=== PATIENT | female | born 1945 | race Two or more races ===

== ENCOUNTER 2019-09-03 09:41 | Inpatient (IN) | payer MEDICARE ==
[~2019-09-03] VITALS: Ht 157.5 cm; Wt 72.1 kg
--- NOTE | 2019-09-03 09:45 | NUR ---
patient bibself sent by PMD c/o pressure like chest pain since 0300. worst at night lying down. On room air, breathing evenly and unlabored. connected to the monitor and pulse ox. kept comfortable, will continue to monitor accordingly.
--- NOTE | 2019-09-03 09:50 | NUR ---
PT IV LINE ESTABLISHED BLOOD DRAWN AND SENT TO LAB.
--- NOTE | 2019-09-03 10:09 | NUR ---
STAINED GLASS GLAZIER HELPER AT BEDSIDE FOR XRAY.
--- NOTE | 2019-09-03 10:15 | NUR ---
COVID SWAB AND RAPID INFLUENZA OBTAINED AND SENT TO LAB.
[2019-09-03 10:18] LABS: BASOPHILS # (AUTO) 0.1 /CMM (0.0-0.2); EOSINOPHILS % (AUTO) 0.9 % (0.0-6.0); HEMATOCRIT 41 % (33-45); HEMOGLOBIN 13.8 g/dL (11.5-14.8); LYMPHOCYTES # (AUTO) 1.9 /CMM (0.8-4.8); LYMPHOCYTES % (AUTO) 26.2 % (20.0-44.0); MEAN CORPUSCULAR HGB CONC 34 g/dl (31.0-36.0); MEAN CORPUSCULAR VOLUME 95 fL (82-100); MONOCYTES # (AUTO) 0.4 /CMM (0.1-1.30); MONOCYTES % (AUTO) 5.5 % (2.0-12.0); NEUTROPHILS # (AUTO) 4.8 /CMM (1.8-8.9); NEUTROPHILS % (AUTO) 66.4 % (43.0-81.0); PLATELET COUNT (AUTO) 195 /CMM (150-450); RED BLOOD CELL COUNT(AUTO) 4.33 MIL/uL (4.0-5.2); WHITE BLOOD COUNT (AUTO) 7.2 K/uL (4.3-11.0)
[2019-09-03 10:20] LABS: CALCIUM, SERUM 10.1 mg/dL (8.5-10.1); CARBON DIOXIDE 28 mmol/L (21-32); CHLORIDE 101 mmol/L (98-107); CREATININE 1.2 mg/dL (0.6-1.3); GLUCOSE 240 mg/dL (74-106); POTASSIUM 4.2 mmol/L (3.5-5.1); SODIUM SERUM 136 mmol/L (136-145); UREA NITROGEN, BLOOD 24 mg/dL (7-18)
[2019-09-03 10:33] LABS: ALANINE AMINOTRANSFERASE 125 U/L (12-78); ALBUMIN 3.7 g/dL (3.4-5.0); ALKALINE PHOSPHATASE 69 U/L (46-116); ASPARTATE AMINOTRANSFERASE 118 U/L (15-37); B-TYPE NATRIURETIC PEPTIDE 1720 PG/ML (0-125); BILIRUBIN,TOTAL 0.7 mg/dL (0.2-1.0); TOTAL PROTEIN, SERUM 7.8 g/dL (6.4-8.2)
[2019-09-03 10:50] LABS: APPEARANCE,URINE Clear (CLEAR); BILIRUBIN,URINE Negative (NEGATIVE); BLOOD, URINE Trace-intact Ery/uL (NEGATIVE); COLOR,URINE Yellow (YELLOW); KETONES,URINE Negative (NEGATIVE); LEUKOCYTE ESTERASE ,URINE Trace (NEGATIVE); NITRITE, URINE Negative (NEGATIVE); PROTEIN,URINE 100 mg/dl (NEGATIVE); UGLUCOSE Negative (NEGATIVE); UROBILINOGEN,URINE 0.2 EU/dL (0.2)
[2019-09-03 10:52] LABS: BACTERIA,URINE Few /HPF (None Seen); SQUAMOUS EPITHELIAL CELL,UR Few /HPF (None Seen)
--- NOTE | 2019-09-03 10:53 | NUR ---
CALLED FOR BED AND SUBMITTED MOVE SHEET TO ADMITTING.
[2019-09-03 11:21] LABS: CREATINE KINASE, TOTAL 90 U/L (26-192); FERRITIN 43 ng/mL (8-388)
[2019-09-03 11:24] LABS: C-REACTIVE PROTEIN < 0.2 mg/dL (0.0-0.9)
--- NOTE | 2019-09-03 11:37 | NUR ---
DR DALY DE ANDA. AWAITING CALL BACK.
--- NOTE | 2019-09-03 11:44 | NUR ---
CALLED DR. KAUFFMAN [phone] WILL BE PAGED BY AISHA.
--- NOTE | 2019-09-03 11:51 | NUR ---
Dr. Killian accepted the patient for admission.
[2019-09-03] MEDS ORDERED: FUROSEMIDE 40 MG/4 ML VIAL IV ONE (12:00)
[2019-09-03] MEDS ORDERED: ASPIRIN 325 MG TABLET PO ONE (12:00)
[2019-09-03] MEDS ORDERED: NITROGLYCERIN PACKET 1 GM PACKET TD ONE (12:00)
[2019-09-03] MEDS ORDERED: ASPIRIN 325 MG TABLET ONE (12:12)
[2019-09-03] MEDS ORDERED: FUROSEMIDE 40 MG/4 ML VIAL ONE (12:12)
[2019-09-03] MEDS ORDERED: NITROGLYCERIN PACKET 1 GM PACKET ONE (12:12)
[2019-09-03 12:32] LABS: D-DIMER 0.31 mg/L(FEU (0.17-0.50)
--- NOTE | 2019-09-03 12:47 | NUR ---
report given to Chelsea PELAEZ for carlota.
--- NOTE | 2019-09-03 13:16 | NUR ---
wheeled patient via gurney accompanied by RN and emt in no distress. RN at bedside to assume care.
[2019-09-03 13:30] VITALS: BP 147/90
--- NOTE | 2019-09-03 14:00 | NUR ---
Tele/RN - Admission Received patient from ER via gurney, awake, A/O x 4, denies chest pain, stable on room air, tele shows A.Fib. Skin is intact. Patient is ambulatory and uses single point cane. All belongings accounted, refused valuables to be placed in the safe. Patient was oriented to room an use of call light. Fall, droplet and contact precautions initiated for r/o Covid-19. Influenza A&B results were negative. Awaiting for admission orders from Dr. Killian.
[2019-09-03 14:24] LABS: BILIRUBIN,DIRECT 0.1 mg/dL (0.0-0.2)
[2019-09-03] MEDS ORDERED: LOSARTAN POTASSIUM 50 MG TABLET PO SCH (15:00)
[2019-09-03] MEDS: PANTOPRAZOLE 40 MG TABLET.DR PO SCH (15:00)
[2019-09-03 15:48] VITALS: BP 147/90
[2019-09-03] MEDS: METFORMIN 500 MG TABLET PO SCH (16:23)
[2019-09-03] MEDS: APIXABAN 5 MG TABLET PO SCH (16:24)
[2019-09-03 16:27] LABS: MAGNESIUM 1.8 mg/dL (1.8-2.4)
[2019-09-03 16:45] LABS: THYROID STIMULATING HORMONE 2.071 uIU/mL (0.358-3.74)
--- NOTE | 2019-09-03 19:03 | NUR ---
Tele/RN - End of shift summary No significant change in condition seen, stable on room air, remain afebrile, denies chest pain, states feeling better. Plan of care discussed with patient and in agreement. Will endorse to night RN accordingly.
[2019-09-03 20:00] VITALS: BP 143/82
[2019-09-03] MEDS: METOPROLOL TARTRATE 50 MG TABLET PO SCH (21:14)
[2019-09-03] MEDS: TRAZODONE 50 MG TABLET PO SCH (21:14)
[2019-09-03] MEDS: ATORVASTATIN 10 MG TABLET PO SCH (21:15)
[2019-09-03] MEDS: FUROSEMIDE 40 MG/4 ML VIAL IV SCH (21:17)
[2019-09-04] VITALS: BP 134/84
[2019-09-04 04:00] VITALS: BP 127/85
[2019-09-04 07:08] LABS: CALCIUM, SERUM 9.6 mg/dL (8.5-10.1); POTASSIUM 2.9 mmol/L (3.5-5.1)
--- NOTE | 2019-09-04 07:20 | NUR ---
CRITICAL RESULT BLOOD CX DR. KAUFFMAN CONTACTED AND INFORMED OF GRAM POSITIVE COCCI IN CLUSTERS IN THE BLOOD. REVIEWED PATIENT CONDITION OF NO FEVER AND LAST WBC COUNT. NO NEW ORDERS AT THIS TIME. WILL CONT TO MONITOR.
[2019-09-04] MEDS: PANTOPRAZOLE 40 MG TABLET.DR PO SCH (07:41)
--- NOTE | 2019-09-04 07:53 | NUR ---
ARTISTIC DIRECTOR OPENING NOTES RECEIVED PATIENT IN BED, AWAKE, A/O X3. PATIENT IS ON ROOM AIR; BREATHING IS EVEN AND UNLABORED. NO SOB PRESENT AT THIS TIME. PATIENT DENIES PAIN. EXTERNAL STOCK CONTROL CLERK ATTACHED WITH A READING OF SR 85. RAC SL GAUGE # 18 IV ACCESS PRESENT AND INTACT; FLUSHING WELL. SAFETY PRECAUTIONS IN PLACE; BED IN LOW POSITION AND LOCKED, RAILS UP X2, CALL LIGHT WITHIN REACH. WILL CONTINUE TO MONITOR PATIENT.
[2019-09-04 08:00] VITALS: BP 164/70
[2019-09-04] MEDS: TENOFOVIR DISOPROXIL FUMARATE 300 MG TABLET PO SCH (09:13)
[2019-09-04] MEDS: METFORMIN 500 MG TABLET PO SCH ×2 (09:13→16:40)
[2019-09-04] MEDS: ISOSORBIDE MONONITRATE (30MG) 30 MG TAB.SR.24H PO SCH (09:14)
[2019-09-04] MEDS: APIXABAN 5 MG TABLET PO SCH ×2 (09:15→16:41)
[2019-09-04] MEDS: METOPROLOL TARTRATE 50 MG TABLET PO SCH ×2 (09:16→21:15)
[2019-09-04] MEDS: LOSARTAN POTASSIUM 50 MG TABLET PO SCH (09:16)
[2019-09-04] MEDS: FUROSEMIDE 40 MG/4 ML VIAL IV SCH ×2 (09:17→21:15)
[2019-09-04] MEDS: POTASSIUM CHLORIDE 20 MEQ TAB.PRT.SR PO SCH ×3 (10:09→12:16)
[2019-09-04 12:00] VITALS: BP 138/75
[2019-09-04] MEDS ORDERED: POTASSIUM CHLORIDE 20 MEQ TAB.PRT.SR PO SCH ×2 (12:00→14:00)
--- NOTE | 2019-09-04 13:54 | NUR ---
NEWS REEL CAMERAMAN NOTES DOUBLE ORDER. EXTRA 40 MEQ ALREADY ADMINISTERED IN ADDITION TO 60 GIVEN BEFORE.
[2019-09-04 16:00] VITALS: BP 115/71
--- NOTE | 2019-09-04 19:00 | NUR ---
SALES STORE CHECKER NOTES RECEIVED A CALL FROM LAB. PATIENT IS COVID-19 NEGATIVE. INFORMED MD. WILL ENDORSE TO BENEFITS ASSISTANT NURSE.
--- NOTE | 2019-09-04 19:01 | NUR ---
ADULT EDUCATION TEACHER CLOSING NOTES PATIENT STILL IN BED, AWAKE, A/O X3. PATIENT ON ROOM AIR; BREATHING IS EVEN AND UNLABORED. NO SOB PRESENT AT THIS TIME. NO COMPLAINS OF PAIN THROUGHOUT THE DAY. EXTERNAL CUSTODIAN ATHLETIC EQUIPMENT ATTACHED WITH A READING OF SR 80S. RAC SL GAUGE # 18 IV ACCESS PRESENT AND INTACT; FLUSHING WELL. ALL NEEDS ATTENDED TO DURING THE DAY SHIFT. SAFETY PRECAUTIONS REMAIN IN PLACE; BED IN LOW POSITION AND LOCKED, RAILS UP X2, CALL LIGHT WITHIN REACH. WILL ENDORSE TO STAFF SERVICES MANAGER NURSE.
--- NOTE | 2019-09-04 19:10 | NUR ---
TELE/RN OPENING NOTES: RECEIVED PATIENT IN BED, AWAKE, A/O X3-4. CURRENTLY PLACED ON ROOM AIR; BREATHING IS EVEN AND UNLABORED. NO SOB PRESENT AT THIS TIME. SATURATING WELL AT 95%. NO COMPLAINS OF PAIN AT THIS TIME. EXTERNAL TACK CUTTER ATTACHED WITH A READING OF AFIB WITH HR ON THE 90S TO 100S. IV PLACED ON THE RAC #18G SL, INTACT; FLUSHING WELL. ALL NEEDS ATTENDED FOR NOW. AMBULATORY AND BRP. SKIN IS INTACT. SAFETY PRECAUTIONS REMAIN IN PLACE; BED IN LOW POSITION AND LOCKED, RAILS UP X2, CALL LIGHT WITHIN REACH. WILL CONTINUE MONITORING.
--- NOTE | 2019-09-04 19:54 | NUR ---
TELE/RN CLOSING NOTES: RECIEVED PATIENT IN BED, AWAKE, A/O X3-4. CURRENTLY PLACED ON ROOM AIR; BREATHING IS EVEN AND UNLABORED. NO SOB PRESENT AT THIS TIME. SATURATING WELL AT 95%. NO COMPLAINS OF PAIN AT THIS TIME. EXTERNAL BEE ROBBER ATTACHED WITH A READING OF AFIB WITH HR ON THE 90S TO 100S. IV PLACED ON THE RAC #18G SL, INTACT; FLUSHING WELL. ALL NEEDS ATTENDED FOR NOW. AMBULATORY AND BRP. SKIN IS INTACT. SAFETY PRECAUTIONS REMAIN IN PLACE; BED IN LOW POSITION AND LOCKED, RAILS UP X2, CALL LIGHT WITHIN REACH. WILL CONTINUE MONITORING. Addendum: 09/04/19 at 2008 by CHET WILKES RN OPENING NOTES
[2019-09-04 20:00] VITALS: BP 140/81
[2019-09-04] MEDS: TRAZODONE 50 MG TABLET PO SCH (21:16)
[2019-09-04] MEDS: ATORVASTATIN 10 MG TABLET PO SCH (21:16)
[2019-09-05] VITALS (7 sets, daily range): BP systolic 116–152; BP diastolic 61–66
--- NOTE | 2019-09-05 06:11 | NUR ---
TELE/RN CLOSING NOTES: PATIENT IN BED, SLEEPING, REMAINS A/O X4. ON ROOM AIR; BREATHING IS EVEN AND UNLABORED. NO SOB PRESENT AT THIS TIME. SATURATING WELL AT 95%. NO COMPLAINS OF PAIN AT THIS TIME. EXTERNAL ASTRONAUT MISSION SPECIALIST ATTACHED WITH A READING OF AFIB WITH HR ON THE 90S. IV ON THE RAC #18G SL, INTACT; FLUSHING WELL. ALL NEEDS ATTENDED FOR NOW. ALL DUE MEDS GIVEN ORDERED. SAFETY PRECAUTIONS REMAIN IN PLACE; BED IN LOW POSITION AND LOCKED, RAILS UP X2, CALL LIGHT WITHIN REACH. WILL ENDORSE TO DAY SHIFT FOR VEDA.
[2019-09-05 07:02] LABS: CALCIUM, SERUM 9.8 mg/dL (8.5-10.1); POTASSIUM 3.6 mmol/L (3.5-5.1)
[2019-09-05] MEDS: FUROSEMIDE 40 MG/4 ML VIAL IV SCH (08:10)
[2019-09-05] MEDS: PANTOPRAZOLE 40 MG TABLET.DR PO SCH (08:10)
[2019-09-05] MEDS: TENOFOVIR DISOPROXIL FUMARATE 300 MG TABLET PO SCH (08:10)
[2019-09-05] MEDS: METFORMIN 500 MG TABLET PO SCH (08:11)
[2019-09-05] MEDS: APIXABAN 5 MG TABLET PO SCH (08:13)
--- NOTE | 2019-09-05 08:14 | NUR ---
TRICK RODEO RIDER NOTES RECEIVED PATIENT IN BED A/OX 4. NO SOB OR DISCOMFORT NOTED AT THIS TIME. ABLE TO AMBULATE BY HERSELF. BED AT THE LOWEST POSITION LOCKED. CALL LIGHT WITHIN REACH WILL CONTINUE TO MONITOR THE PATIENT.
[2019-09-05] MEDS: METOPROLOL TARTRATE 50 MG TABLET PO SCH (08:21)
[2019-09-05] MEDS: LOSARTAN POTASSIUM 50 MG TABLET PO SCH (08:21)
[2019-09-05] MEDS: ISOSORBIDE MONONITRATE (30MG) 30 MG TAB.SR.24H PO SCH (08:21)
[2019-09-05] MEDS ORDERED: IOHEXOL-350 100 ML VIAL IV ONE (13:03)
[2019-09-05] MEDS ORDERED: NITROGLYCERIN 0.4 MG/TAB BOTTLE ONE (13:14)
[2019-09-05] MEDS ORDERED: METOPROLOL TARTRATE INJ 5 MG/5 ML AMPUL ONE ×2 (13:14→13:58)
--- NOTE | 2019-09-05 13:20 | NUR ---
PAPER BALER NOTE Patient was taken to do CT angio with contrast by 2 radiologist via wheelchair in stable condition.
[2019-09-05] MEDS ORDERED: NITROGLYCERIN 0.4 MG/TAB BOTTLE SL ONE (13:30)
[2019-09-05] MEDS: METOPROLOL TARTRATE INJ 5 MG/5 ML AMPUL IVP PRN ×5 (13:33→13:53)
--- NOTE | 2019-09-05 13:38 | NUR ---
ASSISTANT OFFICE MANAGER NOTES PATIENT REPORT GIVEN TO TYE FOR VEDA.
[2019-09-05] MEDS ORDERED: METO25TA6 PO (13:40)
[2019-09-05] MEDS ORDERED: ISOS30TA6 PO (13:40)
[2019-09-05] MEDS ORDERED: METF-440 PO (13:40)
--- NOTE | 2019-09-05 14:20 | NUR ---
FINAL TESTER NOTE Patient came back from the procedure in stable condition. Received order to transfer to 3 room 320. Called and gave report to Armando.
--- NOTE | 2019-09-05 14:43 | NUR ---
BENEFITS CONSULTANT NOTE Patient was transferred to room 320-1 via wheelchair with belongings. Tolerated well. Report handout given to Armando PELAEZ.
--- NOTE | 2019-09-05 14:45 | NUR ---
RN NOTES RECEIVED PATIENT FROM DANIEL[facility] VIA WHEELCHAIR ACCOMPANIED BY BENIGNO GAMBLE. A/O X4. ABLE TO MAKE NEEDS KNOWN. PATIENT ORIENTED TO ROOM, STAFF AND UNIT. NO SIGNS OF DISTRESS NOTED AT THIS TIME. IV ACCESS ON RAC#18, SL. PATENT AND INTACT. S/P CT ANGIO. SAFETY MEASURES IN PLACE, WILL CONTINUE TO MONITOR.
--- NOTE | 2019-09-05 16:30 | NUR ---
RN DISCHARGED NOTES PATIENT DISCHARGED IN STABLE CONDITION. A/O X4. ABLE TO MAKE NEEDS KNOWN. V/S TAKEN, STABLE AND RECORDED. PATIENT'S IV REMOVED AND APPLIED PRESSURE DRESSINGS. SKIN IS INTACT. NAME ARM BAND REMOVED. ALL BELONGINGS CHECKED AND SIGNED. HEALTH TEACHINGS/DISCHARGED INSTRUCTIONS GIVEN TO PATIENT AND VERBALIZED UNDERSTANDING. PATIENT LEFT UNIT VIA WHEELCHAIR, ASSISTED TO THE LOBBY WITH NO ACUTE SIGNS OF DISTRESS NOTED. PICKED UP BY SON. CHARGE NURSE AWARE OF DISCHARGED.
[2019-09-06] MEDS ORDERED: FUROSEMIDE 40 MG TABLET PO SCH (09:00)
== END 2019-09-05 17:30 | disposition home or self-care (01) | DRG 292 ==
LOC: ER 09:41 → TELE 12:34 → TELE1 13:17 → TELE 09-05 14:35 → MED 09-05 15:34
PROVIDERS: ADMIT Internal Medicine; ATTEND Internal Medicine
DX: I11.0 Hypertensive heart disease with heart failure (principal); I48.21 Permanent atrial fibrillation; E87.2 Acidosis; B18.1 Chronic viral hepatitis B without delta-agent; I31.3 Pericardial effusion (noninflammatory); I50.23 Acute on chronic systolic (congestive) heart failure; Z79.01 Long term (current) use of anticoagulants; E11.9 Type 2 diabetes mellitus without complications; E87.6 Hypokalemia; R07.9 Chest pain, unspecified; R74.0 Nonspecific elevation of levels of transaminase and lactic acid dehydrogenase [LDH]; Z79.84 Long term (current) use of oral hypoglycemic drugs; E66.9 Obesity, unspecified; Z68.29 Body mass index [BMI] 29.0-29.9, adult; Z80.0 Family history of malignant neoplasm of digestive organs
CPT/HCPCS: 36415; 71045-TC; 75574; 80048-TC; 80053-TC; 81000-TC; 82248-TC; 82550-TC; 82728-TC; 83605-TC; 83615-TC; 83735-TC; 83880; 84439-TC; 84443-TC; 84484-TC; 85025-TC; 85378-TC; 85730-TC; 86140-TC; 87040-TC; 87081-TC; 93307-TC; G0378; J1940; J3490; Q9967

== ENCOUNTER 2020-10-03 14:55 | Inpatient (IN) | payer MEDICARE ==
[2020-10-03] VITALS (18 sets, daily range): BP systolic 75–154; BP diastolic 43–118
[~2020-10-03] VITALS: Ht 167.6 cm; Wt 64.9 kg
[~2020-10-03 14:55] MED LIST: ISOS30TA86 PO; METF-440 PO; METO25TA6 PO
--- NOTE | 2020-10-03 15:17 | NUR ---
bibdaughter, c/o chest tightness since last night, 7/10 pain scale, radiating to right upper back. On room air, breathing evenly and unlabored. connected to the monitor and pulse ox. kept comfortable, will continue to monitor accordingly.
--- NOTE | 2020-10-03 15:18 | NUR ---
IV access started and blood drawned and sent to lab
[2020-10-03 15:19] LABS: BASOPHILS # (AUTO) 0.1 /CMM (0.0-0.2); BASOPHILS % (AUTO) 1.1 % (0.0-2.0); HEMATOCRIT 35 % (33-45); HEMOGLOBIN 11.3 g/dL (11.5-14.8); LYMPHOCYTES # (AUTO) 1.6 /CMM (0.8-4.8); LYMPHOCYTES % (AUTO) 25.6 % (20.0-44.0); MEAN CORPUSCULAR HGB CONC 33 g/dl (31.0-36.0); MEAN CORPUSCULAR VOLUME 100 fL (82-100); MONOCYTES # (AUTO) 0.3 /CMM (0.1-1.30); MONOCYTES % (AUTO) 4.2 % (2.0-12.0); NEUTROPHILS # (AUTO) 3.9 /CMM (1.8-8.9); NEUTROPHILS % (AUTO) 64.1 % (43.0-81.0); PLATELET COUNT (AUTO) 180 /CMM (150-450); RED BLOOD CELL COUNT(AUTO) 3.47 MIL/uL (4.0-5.2); WHITE BLOOD COUNT (AUTO) 6.1 K/uL (4.3-11.0)
[2020-10-03 15:30] LABS: CALCIUM, SERUM 10.4 mg/dL (8.5-10.1); CARBON DIOXIDE 12 mmol/L (21-32); CHLORIDE 105 mmol/L (98-107); CREATININE 5.6 mg/dL (0.6-1.3); GLUCOSE 125 mg/dL (74-106); POTASSIUM 6.1 mmol/L (3.5-5.1); SODIUM SERUM 135 mmol/L (136-145)
[2020-10-03 15:33] LABS: UREA NITROGEN, BLOOD 112 mg/dL (7-18)
--- NOTE | 2020-10-03 16:01 | NUR ---
covid swab collected and sent to lab
[2020-10-03] MEDS ORDERED: TENO300T5 PO (16:18)
[2020-10-03] MEDS ORDERED: ATOR10TA PO (16:18)
[2020-10-03] MEDS ORDERED: APIX5TAB PO (16:18)
[2020-10-03] MEDS ORDERED: ERTU5TAB PO (16:18)
[2020-10-03] MEDS ORDERED: SPIR25TA6 PO (16:18)
[2020-10-03] MEDS ORDERED: BUME1TAB8 PO (16:18)
[2020-10-03] MEDS ORDERED: METO200T49 PO (16:18)
[2020-10-03] MEDS ORDERED: SACU1TAB7 PO (16:18)
[2020-10-03] MEDS ORDERED: IV NS 0.9% 500 ML BAG IV ONE ×2 (17:00→18:00)
--- NOTE | 2020-10-03 17:20 | NUR ---
DR. KAUFFMAN SPEAKING WITH DR. OWEN.
--- NOTE | 2020-10-03 17:45 | NUR ---
received a call from Rakel LOVE and clinical report given aNd faxed to [phone], Phone number [phone]
--- NOTE | 2020-10-03 18:47 | NUR ---
Report given to Julien PELAEZ for carlota
--- NOTE | 2020-10-03 18:58 | NUR ---
wheeled patient via gurney accompanied by RN and emt in no distress. RN assigned to patient at bedside to assume care.
--- NOTE | 2020-10-03 18:59 | NUR ---
RN NOTES PATIENT ARRIVED TO UNIT AT ROOM 326-2 VIA GURNEY, ACCOMPANIED BY 2 ER NURSES. PATIENT AMBULATORY AND ABLE TO AMBULATE TO BED W/ ASSISTANCE.
[2020-10-03] MEDS ORDERED: IV NS 0.9% 1,000 ML IV PRN ×2 (19:00→21:00)
--- NOTE | 2020-10-03 20:20 | NUR ---
RT NOTE RESPONDED TO CODE AT 3 WEST. PERFORMED CPR AND ADMINISTERED 100% O2 VIA AMBU BAG. PT INTUBATED BY MD OWEN AND SECURED ET TUBE VIA ET TUBE GROVE. ET TUBE 7.5 @ 23 CM. TRANSFERRED PT TO ICU AND PLACED PT ON VENT WITH CURRENT SETTINGS OF AC 16, 500, 100%, +5. WILL DRAW ABG IN 1 HOUR POST INTUBATION. WILL AWAIT FURTHER ORDERS. VENT PLUGGED TO RED OUTLET. ALARMS ON AND AUDIBLE.
--- NOTE | 2020-10-03 20:35 | NUR ---
ICU/SCOWMAN RECEIVED REPORT FROM [facility] NURSE APONTE. THIS WAS S/P RAPID THEN TURNED CODE BLUE.
[2020-10-03] MEDS ORDERED: PROPOFOL 100 ML ONE (20:51)
--- NOTE | 2020-10-03 20:55 | NUR ---
ICU/TRACTOR TRAILER DRIVER SPOKE TO DR KAUFFMAN ABOUT ICU ADMISSION. OBTAINED ORDERS FOR ICU TRANSFER. CHARGE NURSE MADE AWARE. PLACED ORDERS BY DR KAUFFMAN. ALSO ASKED DR KAUFFMAN ABOUT ELEVATED BUN/CREAT/ K LEVEL SAID DR SANTOS IS TO ADDRESS THAT. ALSO GAVE ORDER KAYEXALATE.
[2020-10-03 20:56] LABS: BASOPHILS # (AUTO) 0.1 /CMM (0.0-0.2); BASOPHILS % (AUTO) 0.6 % (0.0-2.0); EOSINOPHILS % (AUTO) 2.2 % (0.0-6.0); HEMATOCRIT 32 % (33-45); HEMOGLOBIN 10.5 g/dL (11.5-14.8); LYMPHOCYTES # (AUTO) 4.7 /CMM (0.8-4.8); LYMPHOCYTES % (AUTO) 55.6 % (20.0-44.0); MEAN CORPUSCULAR HGB CONC 33 g/dl (31.0-36.0); MEAN CORPUSCULAR VOLUME 101 fL (82-100); MONOCYTES # (AUTO) 0.3 /CMM (0.1-1.30); MONOCYTES % (AUTO) 3.8 % (2.0-12.0); NEUTROPHILS # (AUTO) 3.2 /CMM (1.8-8.9); NEUTROPHILS % (AUTO) 37.8 % (43.0-81.0); PLATELET COUNT (AUTO) 167 /CMM (150-450); RED BLOOD CELL COUNT(AUTO) 3.18 MIL/uL (4.0-5.2); WHITE BLOOD COUNT (AUTO) 8.4 K/uL (4.3-11.0)
[2020-10-03] MEDS ORDERED: PROPOFOL 100 ML IV PRN (21:00)
[2020-10-03 21:14] LABS: CALCIUM, SERUM 11.2 mg/dL (8.5-10.1); CARBON DIOXIDE 15 mmol/L (21-32); CHLORIDE 110 mmol/L (98-107); CREATININE 5.5 mg/dL (0.6-1.3); GLUCOSE 268 mg/dL (74-106); POTASSIUM 5.4 mmol/L (3.5-5.1); SODIUM SERUM 142 mmol/L (136-145)
[2020-10-03 21:15] LABS: UREA NITROGEN, BLOOD 111 mg/dL (7-18)
[2020-10-03 21:19] LABS: BAND % (MANUAL) 1 % (0.0-5.0); EOSINOPHILS % (MANUAL) 3 % (0-4); LYMPHOCYTES % (MANUAL) 45 % (16-48); MONOCYTES % (MANUAL) 2 % (0-11.0); NEUTROPHILS % (MANUAL) 48 (42-76); REACTIVE LYMPHOCYTES 1 % (0-0)
--- NOTE | 2020-10-03 21:20 | NUR ---
ICU/JAVASCRIPT APPLICATION DEVELOPER ORDERS GIVEN FOR KAYEXALATE, ALVAREZ, N/G TUBE WAS GIVEN AND CARRIED OUT. WAITING FOR HOUSE SUP TO BRING MED. ICU DOESN'T HAVE THIS MED. ON THE FLOOR.
[2020-10-03 21:29] LABS: NT-PRO BNP 1387 pg/mL (0-125)
[2020-10-03] MEDS ORDERED: SODIUM POLYSTYRENE SULFONATE 15 G/60 ML BOTTLE PO ONE (21:30)
[2020-10-03] MEDS ORDERED: SODIUM POLYSTYRENE SULFONATE 15 G/60 ML BOTTLE ONE (21:34)
--- NOTE | 2020-10-03 21:45 | NUR ---
ICU/PLANT PRODUCTION MANAGER DR KAUFFMAN CALLED ABOUT THE ABG RESULTS, VENT SETTINGS IS AC 16, 500, 100, 5. PH 7.215, HCO3 11.4. CHARGE NURSE CALLED, AWAITING FOR CALL BACK.
[2020-10-03 21:56] LABS: ABG OXYGEN SATURATION 97.3 % (92.0-98.5); ABG PCO2 28.7 mmHg (35.0-45.0); ABG PH 7.215 (7.350-7.450); ABG PO2 101.9 mmHg (75.0-100.0); AaDO2 582.4 mmHg; COHb 0.3 % (0.5-1.5); MetHb 0.1 % (0.0-1.5); O2Hb 96.9 % (94.0-97.0); SITE, ABG Right Radial
--- NOTE | 2020-10-03 21:56 | NUR ---
ICU/[place] PT WAS GIVEN KAYEXALATE. ABG WAS DONE CHARGE NURSE GIVEN RESULTS. DR KAUFFMAN CALLED ABOUT THE RESULTS. ALSO INCREASED THE IVF TO 150ML [id number]. CHARGE NURSE INCREASED DIPRIVAN PER ICU PROTOCAL FOR PT IS BE SEDATED WHILE INTUBATED.
[2020-10-03] MEDS ORDERED: EPINEPHRINE (1:10,000) SYRINGE 1 MG/10 ML DISP.SYRIN ONE (22:00)
[2020-10-03] MEDS ORDERED: CALCIUM CHLORIDE 1,000 MG/10 ML DISP.SYRIN ONE (22:00)
[2020-10-03] MEDS ORDERED: SODIUM BICARBONATE SYR 50 MEQ/50 ML DISP.SYRIN ONE ×3 (22:00→22:37)
[2020-10-03] MEDS ORDERED: AMIODARONE 150 MG/3 ML VIAL IV ONE (22:00)
[2020-10-03] MEDS ORDERED: DEXTROSE 50%-WATER 50 ML DISP.SYRIN ONE (22:00)
[2020-10-03] MEDS ORDERED: IV NS 0.9% 1,000 ML IV ONE (22:00)
--- NOTE | 2020-10-03 22:00 | NUR ---
ICU/SUPERVISOR CONTACT LENS THE ETT TUBE IS 1CM ABOVE PONCHO, RT NOTIFED ABOUT THIS AND PULLED BACK ETT TUBE 2CM. Addendum: 10/04/20 at 0914 by ARYAN ARGUETA LVN THIS WAS DONE AT MIDNIGHT.
--- NOTE | 2020-10-03 22:11 | NUR ---
ICU/GEOGRAPHIC INFORMATION SYSTEMS ANALYST CALL WAS PLACED TO DR CHON Levin ABOUT THE RENAL CONSULT AND ALSO THE ABG RESULTS. WAITING FOR CALL BACK.
--- NOTE | 2020-10-03 22:23 | NUR ---
MS/TELE/RN FOUND WRITTEN INITIAL ADMISSION ORDERS TO TELE BY DR. KAUFFMAN. ADMISSIONS ORDERS WERE ENTERED BY MARYBEL EJFFRIES RN. (LATE ENTRY).
--- NOTE | 2020-10-03 22:26 | NUR ---
MS/TELE/RN LATE ENTRY. AT 1930, DURING MY INITIAL SHIFT ROUNDING, FOUND PATIENT LYING IN BED AWAKE, ALERT, ORIENTED, VERBAL, SON AT BEDSIDE, PATIENT WAS COMFORTABLE, NO C/O PAIN, NO SIGNS OF DISTRESS NOTED, CALL LIGHT WAS IN REACH. AT AROUND 1949, I CAME BACK TO THE ROOM TO DO MY ADMISSION AND FOUND PATIENT SITTING AT THE EDGE OF THE BED LOOKING PALE. PER SON, HE JUST WALKED THE PATIENT TO THE BATHROOM. MEDICAL PARASITOLOGISTNESHA CAME IN, ASSISTED PATIENT BACK TO LYING POSITION IN BED WITH THE HELP OF THE MEDICAL PARASITOLOGIST NESHA AND THE SON. PATIENT WAS NOTED TO BE NON RESPONSIVE AT THIS TIME, NO BREATHING NOTED. CYNTHIA PRINGLE WAS THEN CALLED, AT 1952, CYNTHIA PRINGLE TEAM CAME RIGHT AWAY, VITAL SIGNS TAKEN, BP 87/31, HR 0, RR 0, O2 SAT 0, ACCU CHECK BLOOD SUGAR 121, HEART MONITOR WAS CONNECTED TO THE PATIENT. CHEST COMPRESSIONS WAS INITIATED BY THE CYNTHIA PRINGLE TEAM, INTUBATION WAS DONE. PATIENT WAS REVIVED. CODE BLUE ENDED AT 1999. PATIENT WAS THEN TRANSFERRED TO ICU PER ACLS PROTOCOL AT 2009 TO ROOM 253. REPORT WAS GIVEN TO SOMMER BAEZA. PLACED A CALL TO DR. KAUFFMAN AT [phone], LEFT MESSAGE. SOMMER BAEZA, INFORMED.
[2020-10-03] MEDS ORDERED: Sodium Bicarbonate 100 MEQ in IV 1/2NS 1000 ML 1,000 ML IV PRN (22:30)
[2020-10-03] MEDS ORDERED: SODIUM BICARBONATE SYR 50 MEQ/50 ML DISP.SYRIN IV ONE (22:30)
--- NOTE | 2020-10-03 22:32 | NUR ---
ICU/BUNDLE CLERK CHARGE NURSE SPOKE TO DR KAUFFMAN ABOUT ABG RESULTS ALSO MADE HIM ARE THAT NO DR GIVENS CALLED BACK. NO ORDERS RECIEVED ABOUT THE ABG RESULTS SAID TO CALL RENAL GROUP. CALLED RENAL GROUP ABOUT THIS PT AND ABG RESULTS. DR SMALL CALLED BACK SPOKE TO CHARGE NURSE WHO THEN RECIEVED ORDERS FOR CARRYING OUT THE ORDERS.
--- NOTE | 2020-10-03 22:56 | NUR ---
MS/ELDON/ELECTRIC TRAIN DRIVER INFORMATIONS OBTAINED FROM E.R. NOTES THE PATIENT IS ALREADY IN ICU AND NO FAMILY MEMBER IS AVAILABLE AT THIS TIME. ADMISSION IS A LATE ENTRY. Addendum: 10/03/20 at 2317 by FAY TIJERINA RN ADMISSION INFORMATIONS WAS BASED ON MY INITIAL SHIFT ROUNDING ASSESSMENT OF THE PATIENT.
--- NOTE | 2020-10-03 23:00 | NUR ---
ICU/ELECTROLOG OPERATOR ASKED DR KAUFFMAN FOR EPI DRIP FOR LOW HEART RATE, ASKED TO CALL DR SCHMID COMPRESSION MOLDING MACHINE SETTER. WAITING FOR DR RICARDO TO CALL BACK.
--- NOTE | 2020-10-03 23:02 | NUR ---
ICU/SAMPLE STITCHER DR KAUFFMAN CALLED ABOUT THE LOW HEART RATE 30'S TO 40'S. SAID THAT HE WASN'T GOING TO TREAT THIS. ALSO NOTIFIED HIM THAT MAYBE PT SHOULD HAVE A DIFFERENT SEDATION, SUCH VERSED DUE TO THE HEP B. DR KAUFFMAN SAID NO. TOLD HIM THAT PT IS AWAKING UP AT 50MCG. DR KAUFFMAN REFUSED TO CHANGE ANYTHING OR GIVE ORDER.
--- NOTE | 2020-10-03 23:02 | NUR ---
ICU/JOINERY PATTERNMAKER WILL CONTINUE TO MONITOR THIS PT, CLOSELY. PT IS RESPONDING TO THE CARE GIVEN BY NURSES.
[2020-10-03] MEDS ORDERED: NOREPINEPHRINE 8MG/250ML RTU 250 ML IV ONE ×2 (23:13→23:54)
--- NOTE | 2020-10-03 23:14 | NUR ---
ICU/LIEUTENANT SHIFT SUPERVISOR HOUSE SUP MADE AWARE OF THESE CONCERNS. @2209- LEVO WILL BE STARTED BY CHARGE NURSE FOR LOW BP OF 80'S. WILL CONTINUE TO CLOSELY MONITOR THIS PT.
[2020-10-03] MEDS: NOREPINEPHRINE 8 MG in IV NS 0.9% 242 ML IV PRN (23:16)
--- NOTE | 2020-10-03 23:30 | NUR ---
ICU/SHELL GRADER PLACED LAB ORDERS IN THE COMPUTER, CBC, MAG, PHOS, TROP AND STAT XRAY DUE TO LABS NOT BEING REPEATED AND ALSO ETT TUBE PLACEMENT. NEED BASELINE TO IF THE INTERVENTIONS HAVE HELPED SINCE DONE AND GIVEN.
[2020-10-03] MEDS ORDERED: ATROPINE SULFATE 1 MG/10 ML DISP.SYRIN ONE (23:37)
--- NOTE | 2020-10-03 23:37 | NUR ---
ICU/HISTORY FACULTY MEMBER STAT LABS ALONG WITH LABS DONE DUE TO RYTHEM CHANGE
[2020-10-03] MEDS ORDERED: NOREPINEPHRINE 4 MG/4 ML AMPUL IV ONE (23:55)
[2020-10-04] VITALS (33 sets, daily range): BP systolic 42–146; BP diastolic 20–93
[2020-10-04] MEDS ORDERED: ATROPINE SULFATE 1 MG/10 ML DISP.SYRIN IV ONE
--- NOTE | 2020-10-04 00:01 | NUR ---
RT ett pulled out 2 cm to 21cm
[2020-10-04] MEDS ORDERED: EPINEPHRINE (1:1000) 1 MG/ML AMPUL ONE ×6 (00:29→05:44)
--- NOTE | 2020-10-04 00:30 | NUR ---
ICU.POLICE COMMUNICATIONS DISPATCHER EPI DRIP ORDER WAS RECIEVED FROM ER . ORDER WAS CARRIED OUT. CHARGE NURSE AWARE SEE FLOWSHEET FOR TITRATION.
[2020-10-04] MEDS ORDERED: AMIODARONE 150 MG in IV D5W 100 ML IV STA (00:44)
[2020-10-04 00:48] LABS: BASOPHILS % (AUTO) 0.3 % (0.0-2.0); EOSINOPHILS % (AUTO) 0.3 % (0.0-6.0); HEMATOCRIT 29 % (33-45); HEMOGLOBIN 9.2 g/dL (11.5-14.8); LYMPHOCYTES # (AUTO) 4.4 /CMM (0.8-4.8); LYMPHOCYTES % (AUTO) 32.2 % (20.0-44.0); MEAN CORPUSCULAR HGB CONC 32 g/dl (31.0-36.0); MEAN CORPUSCULAR VOLUME 102 fL (82-100); MONOCYTES # (AUTO) 0.6 /CMM (0.1-1.30); MONOCYTES % (AUTO) 4.2 % (2.0-12.0); NEUTROPHILS # (AUTO) 8.7 /CMM (1.8-8.9); PLATELET COUNT (AUTO) 112 /CMM (150-450); RED BLOOD CELL COUNT(AUTO) 2.79 MIL/uL (4.0-5.2); WHITE BLOOD COUNT (AUTO) 13.7 K/uL (4.3-11.0)
[2020-10-04] MEDS: EPINEPHRINE (1:1000) 5 MG in IV NS 0.9% 245 ML IV PRN ×2 (00:48→05:49)
--- NOTE | 2020-10-04 01:04 | NUR ---
RT responded to code blue x2.
[2020-10-04 01:11] LABS: CALCIUM, SERUM 11.7 mg/dL (8.5-10.1); CARBON DIOXIDE 21 mmol/L (21-32); CHLORIDE 112 mmol/L (98-107); CREATININE 5.6 mg/dL (0.6-1.3); NT-PRO BNP 1294 pg/mL (0-125); SODIUM SERUM 150 mmol/L (136-145)
[2020-10-04 01:13] LABS: GLUCOSE 466 mg/dL (74-106); UREA NITROGEN, BLOOD 108 mg/dL (7-18)
[2020-10-04 01:15] LABS: CHLORIDE 112 mmol/L (98-107); SODIUM SERUM 150 mmol/L (136-145)
[2020-10-04 01:16] LABS: CARBON DIOXIDE 21 mmol/L (21-32); GLUCOSE 466 mg/dL (74-106)
[2020-10-04 01:17] LABS: CALCIUM, SERUM 11.7 mg/dL (8.5-10.1); CREATININE 5.6 mg/dL (0.6-1.3); PHOSPHORUS 7.9 mg/dL (2.5-4.9); UREA NITROGEN, BLOOD 108 mg/dL (7-18)
[2020-10-04 01:18] LABS: ALANINE AMINOTRANSFERASE 282 U/L (12-78); ALBUMIN 2.3 g/dL (3.4-5.0); ALKALINE PHOSPHATASE 42 U/L (46-116); ASPARTATE AMINOTRANSFERASE 226 U/L (15-37); BILIRUBIN,TOTAL 0.4 mg/dL (0.2-1.0); MAGNESIUM 2.3 mg/dL (1.8-2.4)
--- NOTE | 2020-10-04 01:20 | NUR ---
ICU/AWS SOFTWARE DEVELOPMENT ENGINEER 0000-ASKED ER MD TO COME ASSESS PT DUE TO CHANGE IN CONDITION, DR KAUFFMAN IS NOT RESPONDING TO CALLS. ALSO ASKED HOUSE SUP. TO CALL CARDIOLOGY, DUE TO THE RESPONDS TIME FROM DR KAUFFMAN. 0015-DR RICARDO CALLED GAVE UPDATE & DR GIVENS WELL 0008-SECOND CODE WAS CALLED, 0024-PT RETURNED TO ROSC@0024, LEVO MAXED, 1/2 NS+2AMP BICARB @100ML GOING SEDATION STOPPED DUE TO LOW HEART RATE. 0036-THIRD CODE BLUE CALLED, 0041-PT RETURNED TOP ROSC 0100-LABS WERE DRAWN ALONG WITH CHEST XRAY, ALL ARE STAT.
[2020-10-04] MEDS ORDERED: SODIUM BICARBONATE SYR 50 MEQ/50 ML DISP.SYRIN ONE ×2 (01:26→01:27)
[2020-10-04] MEDS ORDERED: Sodium Bicarbonate 100 MEQ in IV D5W 1,000 ML IV PRN (01:30)
--- NOTE | 2020-10-04 01:30 | NUR ---
ICU/FRONT END DEVELOPER JAVASCRIPT HTML CSS DR KAUFFMAN AT BEDSIDE, SAID TO START HYPOTHERMIA CODE BLUE. CHARGE NURSE MADE AWARE.
--- NOTE | 2020-10-04 01:37 | NUR ---
ICU/CITY PLANNER 0008-SECOND CODE BLUE STATED, PEA, CPR STARTED, SEDATION STOPPED. 0020-SPOKE TO DR KAUFFMAN ABOUT CODE BLUR 0024- PT RETURNS TO ROSC, ER SAID TO MAX OUT LEVO 0030-SPOKE TO DR RICARDO, NO NEW ORDERS OBTAINED AT THIS TIME FROM HIM. 0036-THIRD CODE BLUE IS CALLED PEA, ER SAID TO START EPI DRIP 0040-LABS ARE DRAWN THAT WERE ORDERED AT 2345 BUT WAS UNABLE TO GET DUE TO SLUGGISH BLOOD. ALSO STAT EKG WAS ORDERED TO GET AN UNDERLINE HEART RYTHEM. ALSO ORDERED STAT CXR FOR ETT TUBE PLACEMENT. 0100- CRITICAL LABS COMING IN TROP 0.978, GLUCOSE 466, BUN 108, 0120-DR KAUFFMAN CAME IN TO SEE PT AND TALK TO FAMILY, DR BEACH MADE AWARE OF CRITICAL LAB VALUES.
--- NOTE | 2020-10-04 01:50 | NUR ---
ICU/INSURANCE EXAMINING CLERK DR KAUFFMAN SAID TO CHANGE IVF TO D5W INSTEAD OF 1/2NS BUT BOTH ARE WITH 2AMPS BICARB.
[2020-10-04] MEDS ORDERED: NOREPINEPHRINE 4 MG/4 ML AMPUL IV ONE ×2 (01:51→05:13)
--- NOTE | 2020-10-04 01:55 | NUR ---
ICU/PULMONARY PHYSICIAN DR KAUFFMAN SAID TO START HYPOTHERMIA PROTOCOL, CHARGE NURSE MADE AWARE.
--- NOTE | 2020-10-04 02:10 | NUR ---
ICU/SUPERVISOR CAR INSTALLATIONS HYPOTHERMIA PROTOCAL WAS STARTED, CHARGE NURSE STARTED THIS WITH BRAND COORDINATOR.
--- NOTE | 2020-10-04 02:14 | NUR ---
ICU/VISION IMPAIRED TEACHER PT HAS PNEMOTHORAX, CHARGE NURSE MADE AWARE. CALLED DR KAUFFMAN SAID TO CALL THE VEGETABLE FARM WORKER, TO PLACE LINE. 0215-CALLED THE VEGETABLE FARM WORKER, THEY SAID THAT THEY HAVEN'T SEEN THE PT YET BUT WILL SEE IN THE MORNING. 0220-COOLING BLANKET WAS PLACED ON PT, COOLING MEASURES STARTED, RECTAL TEMP IN PLACE. 0230-FAMILY AY BEDSIDE, MANY MORE WERE BROUGHT UP INTO ICU.
--- NOTE | 2020-10-04 02:16 | NUR ---
ICU/SIGNAL MAINTENANCE TECHNICIAN CRITICAL RADIOLOGY IS STAT, DUE TO RIGHT PNEUMOTHORAX. NOTIFIED CHARGE NURSE ABOUT THIS. Addendum: 10/08/20 at 0129 by ARYAN ARGUETA LVN Late entry this was a stat xray which was ordered at midnight. However this was resulted 2 hours later.
[2020-10-04] MEDS: NOREPINEPHRINE 8 MG in IV NS 0.9% 242 ML IV PRN ×2 (02:23→05:21)
--- NOTE | 2020-10-04 02:30 | NUR ---
ICU/BEVELLER OPERATOR HOUSE SUP MADE AWARE THAT PT HAS PNEMOTHORAX AND DR KAUFFMAN WAS CALLED ABOUT THIS, WHO SAID NOTIFY SCOOP FILLER. CHARGE NURSE IS AWARE OF OUTCOMES OF CALLING MD, CALLING CATALYST RECOVERY OPERATOR DR ZAIDI.
--- NOTE | 2020-10-04 03:45 | NUR ---
ICU/LOCAL BULK DRIVER 301-FOURTH CODE BLUE CALLED, МАРИНА EMNDOSA AT BEDSIDE. NOTIFIED HIM ABOUT THE CHEST XRAY RESULTS. 311-ER NEEDLE TO CHEST TO RELEASE TRAP AIR FROM EMPHYSEMA. 321-RIGHT SIDE CHEST TUBE PLACED FOR THE PNEMOTHORAX 327-PT RETURNED TO ROSC 339-ER AT BEDSIDE WITH FAMILY NOTIFIED THEM ABOUT OUTCOME TO PT'S SURVIVAL. FAMILY WANTS FULL CODE. Addendum: 10/04/20 at 0948 by ARYAN ARGUETA LOCAL BULK DRIVER SEE CODE BLUE SHEET, PT WENT ASYSTOLE FROM HEART RATE 30'S. MAXED ON LEVO, AND MAX EPI DRIP.
--- NOTE | 2020-10-04 07:30 | NUR ---
RN OPENING NOTES ICU RECEIVED REPORT FROM CHARGE NURSE THAT PATIENT IS . FAMILY AT BEDSIDE CURRENTLY AWAITING CENTRAL SUPPLY SUPERVISOR. WILL PERFORM POST MORTEM CARE.
--- NOTE | 2020-10-04 08:00 | NUR ---
ICU/COUNTY BAILIFF 0553-FIFTH CODE BLUE PT KOKI DOWN TO 30'S THEN PEA. EPI IS MAXED, LEVO IS MAXED, BICARB DRIP IS ON 0556-ER MD CALLED THE CODE, PT . FAMILY AT BEDSIDE. 0600-BELONGINGS GIVEN TO FAMILY. 0630-[facility] CALLED, WELL CORNER. 0700-FAMILY REQUEST AUTOPSY. 0710-G OFFICE AWARE. 0735-DRUM PRINTER IS CALLED IN.
--- NOTE | 2020-10-04 08:30 | NUR ---
ICU/TAX FORM PREPARER LATE ENTRY: EPI DRIP STARTED @0045 AND WAS TITRATED THROUGH THE NIGHT, SEE FLOWSHEET FOR THIS, BY CIVIL DESIGN SPECIALIST NURSE. THE EPI WAS STARTED AT 0.1 WITH A MAX OF 1.2.
--- NOTE | 2020-10-04 08:45 | NUR ---
ICU/LOOM DOFFER LATE ENTRY WITH LEVO DRIP 2318 10/03/20 LEVO WAS STARTED AND TITRATED UP TO SECOND CODE BLUE@0030 THEN AT 0100 POST THIRD CODE BLUE LEVO WAS DECREASED DOWN AND TITRATED BY CAE ENGINEER NURSE. @0230-LEVO WAS THEN TITRATED UP BY CHARGE NURSE. PT WAS CLOSELY MONITORED FOR ANY CHANGES 0-LEVO MAXED OUT.
[2020-10-04] MEDS ORDERED: METOPROLOL SUCCINATE 50 MG TAB.SR.24H PO SCH (09:00)
[2020-10-04] MEDS ORDERED: APIXABAN 2.5 MG TABLET PO SCH (09:00)
[2020-10-04] MEDS ORDERED: TENOFOVIR DISOPROXIL FUMARATE 300 MG TABLET PO SCH (09:00)
--- NOTE | 2020-10-04 09:28 | NUR ---
Patient provided post mortem care [place] [facility] [place]
[2020-10-04] MEDS ORDERED: ATORVASTATIN 40 MG TABLET PO SCH (22:00)
--- NOTE | 2020-10-07 20:00 | NUR ---
ICU/VENEER REPAIRER MACHINE-LATE ENTRY 10/04/20@[address] KAUFFMAN WAS AT BEDSIDE, ASKED IF HE WOULD LIKE TO PLACE ORDER FOR CT WHEN PT BECOMES STABLE DUE TO PT BECOMING ALTERED AND UNSURE OF CAUSE. DR KAUFFMAN SAID NO. CHARGE NURSE MADE AWARE OF THIS. WILL CONTINUE TO MONITOR THIS PT.
--- NOTE | 2020-10-07 20:10 | NUR ---
ICU/EYE SURGEON-LATE ENTRY 10/04/20 @0130-DR KAUFFMAN HAD PLACED ORDER FOR HYPOTHERMIA PROTOCAL S/P CODE BLUE ROSC ACLS. CHARGE NURSE MADE AWARE THAT PT NEEDS A CENTRAL LINE PLACED FOR DRIPS AND ALSO FOR ALLEGRA TO CLOSELY MONITOR THIS PT'S BLOOD PRESSURE. IRIS YOUNG CALLED HOWEVER UNAVAILABLE TILL THE MORNING. CHARGE NURSE AWARE AT THESE ATTEMPTS AND OUTCOMES.
== END 2020-10-04 10:53 | DRG 299 ==
LOC: ER 14:56 → TELE 18:37 → ICU 20:09
PROVIDERS: ADMIT Internal Medicine; ATTEND Internal Medicine
PROC: 5A1935Z Respiratory Ventilation, Less than 24 Consecutive Hours (ICD-10-PCS; principal; 2020-10-03)
PROC: 0BH17EZ Insertion of Endotracheal Airway into Trachea, Via Natural or Artificial Opening (ICD-10-PCS; 2020-10-03)
PROC: 5A2204Z Restoration of Cardiac Rhythm, Single (ICD-10-PCS; 2020-10-03)
PROC: 5A2204Z Restoration of Cardiac Rhythm, Single (ICD-10-PCS; 2020-10-04)
PROC: 0W9930Z Drainage of Right Pleural Cavity with Drainage Device, Percutaneous Approach (ICD-10-PCS; 2020-10-04)
DX: I71.01 Dissection of thoracic aorta (principal); N17.9 Acute kidney failure, unspecified; I48.21 Permanent atrial fibrillation; B18.1 Chronic viral hepatitis B without delta-agent; J93.9 Pneumothorax, unspecified; T50.2X5A Adverse effect of carbonic-anhydrase inhibitors, benzothiadiazides and other diuretics, initial encounter; Y92.019 Unspecified place in single-family (private) house as the place of occurrence of the external cause; E87.5 Hyperkalemia; Z20.822 Contact with and (suspected) exposure to COVID-19; E66.9 Obesity, unspecified; I11.0 Hypertensive heart disease with heart failure; Z79.84 Long term (current) use of oral hypoglycemic drugs; Z79.899 Other long term (current) drug therapy; I46.9 Cardiac arrest, cause unspecified; E05.90 Thyrotoxicosis, unspecified without thyrotoxic crisis or storm; Z80.41 Family history of malignant neoplasm of ovary; Z80.0 Family history of malignant neoplasm of digestive organs; D64.9 Anemia, unspecified; E11.9 Type 2 diabetes mellitus without complications; I70.0 Atherosclerosis of aorta; I50.9 Heart failure, unspecified; I49.01 Ventricular fibrillation
CPT/HCPCS: 31720; 36415; 36600; 71045-TC; 80048-TC; 80053-TC; 82962-TC; 83735-TC; 83880; 84100-TC; 84484-TC; 85025-TC; 87081-TC; 92950-TC; 94002-TC; 94003-TC; C9803; G0378; J0171; J0282; J0461; J3490; J7030; J7040; J7050; J7060; J7070